=== PATIENT | female | born 1970 | race Caucasian/White ===

== ENCOUNTER 2018-04-13 16:52 | Emergency (ER) | payer OTHER ==
[~2018-04-13] VITALS: Ht 172.7 cm; Wt 99.8 kg
[2018-04-13] MEDS ORDERED: SYNTHROID88 MCG PO (17:02)
[2018-04-13 17:34] LABS: ABSOLUTE BASOPHILS 0.1 thou/uL (0.0-0.2); ABSOLUTE EOSINOPHILS 0.3 thou/uL (0.0-0.7); ABSOLUTE MONOCYTES 0.6 thou/uL (0.0-1.2); ABSOLUTE NEUTROPHILS 4.6 thou/uL (1.6-8.1); BASOPHILS 1.4 %; EOSINOPHILS 4.4 %; HEMATOCRIT 41.5 % (37.0-47.0); HEMOGLOBIN 13.9 gm/dL (12.0-15.0); LYMPHOCYTES 25.7 %; MCH 31.2 pg (26.0-34.0); MCHC 33.6 g/dL (28.0-37.0); MCV 92.8 fL (80.0-100.0); MONOCYTES 7.8 %; MPV 7.5 fl. (7.2-11.1); NUCLEATED RBCS 0 /100WBC; PLATELET COUNT* 317 thou/uL (150-400); POLYS 60.7 %; RBC 4.47 mil/uL (4.20-5.00); RDW-CV 13.1 % (10.5-14.5); WBC 7.6 thou/uL (4.0-11.0)
[2018-04-13 17:48] LABS: CALCIUM 9.1 mg/dL (8.5-10.1); POTASSIUM 3.8 mmol/L (3.5-5.1)
[2018-04-13] MEDS ORDERED: KEFLEX500 M1 PO (17:55)
[2018-04-13 18:08] VITALS: BP 136/80
== END 2018-04-13 18:09 | disposition home or self-care (01) ==
LOC: M.ERS 16:52
PROVIDERS: Nurse Practitioner Family
DX: L03.115 Cellulitis of right lower limb (principal); E03.9 Hypothyroidism, unspecified